=== PATIENT | female | born 1980 | race Caucasian/White ===

== ENCOUNTER 2017-08-24 23:32 | Emergency (ER) | payer MEDICAID ==
[~2017-08-24 23:32] MED LIST: CYCL1TAB29 PO; HYDR-3580 PO; NAPR500T PO
[2017-08-24 23:34] VITALS: BP 111/61; PULSE 91; RESP 16; TEMP 99; O2SAT 100
== END 2017-08-25 02:32 | disposition left against medical advice (07) ==
LOC: NED 23:32
DX: R11.10 Vomiting, unspecified (principal); Z53.21 Procedure and treatment not carried out due to patient leaving prior to being seen by health care provider
CPT/HCPCS: 99281